=== PATIENT | female | born 2000 | race Caucasian/White ===

== ENCOUNTER → 2021-07-30 09:26 | Day surgery (SDC) | payer OTHER, SELFPAY ==
[2021-07-30 09:48] VITALS: BMI 22.1
[2021-07-30 09:59] VITALS: BP 106/69; PULSE 72; RESP 18; TEMP 36.5; O2SAT 100
--- NOTE | 2021-07-30 11:59 | P.PCN_ITS ---
Findings:: PROCEDURE: Upright Tilt Table Test REQUESTING PROVIDER: Era Casillas NP / Dr Deja Gomez INDICATION: Recurrent syncope dating back to childhood BETA BLOCKERS: None PRE-TEST VS: BP 113/65, HR 69 and NSR, O2sats 99% PROCEDURE SUMMARY: Patient was connected to heart monitor, BP and O2 sat monitors and safety straps applied. She was then tilted to 70 degrees for a 35 minutes. While upright she denied any symptoms and had no syncope or pre- syncope. Her BP remained within normal limits with the highest reading being 133/82, occurring 5 minutes after being tilted upright. Her BP then settled down close to her pretest reading. Her lowest BP while upright was 109/81 occurring approximately 32 minutes after being tilted upright. Her HR fluctuated while upright with the highest being 106 bpm and lowest 80 bpm. Immediately after she was returned to the supine position she complained of feeling lightheaded and had a corresponding BP of 92/58 with a HR of 66 bpm. 3 minutes later (while still supine) her BP was 108/67, HR 65 and symptoms had resolved. Her heart rhythm was normal sinus throughout and her O2sats remained in the high 90s. COMPLICATIONS: None CONCLUSIONS: Unremarkable Tilt Table Test
== END ==
PROVIDERS: PCP Family Medicine; Visit Provider Nurse Practitioner Family
DX: R41.0 Disorientation, unspecified (principal); R55 Syncope and collapse
CPT/HCPCS: 93660

== ENCOUNTER → 2021-08-06 07:48 | Outpatient (CLI) | payer OTHER, SELFPAY ==
--- NOTE | 2021-08-06 07:49 | CA_ITS ---
APPROVED REPORT EXAM: Comprehensive 2D, Doppler, and color-flow Echocardiogram Electrolog Operator: Sindi Maki CRT Ht: 5 ft 2 in Wt: 125lbs BSA: 1.57 BP: 96/58 mmHg Indications: Syncope, confusion 2D Dimensions LVOT 1.88 cm (M/F) 1.5-2.5 LA Volume 17.80 mL LA Volume Index 11.30 mL/m2 (M/F) 16-34 M-Mode Dimensions RVDd 1.57 cm (0.9-2.6) LA Diam 2.42 cm (1.9-4.0) LVDd 4.55 cm (3.5-5.7) Ao Diam 2.94 cm (2.0-3.7) LVDs 3.20 cm (3.5-5.7) IVSd 0.84 cm (0.6-1.1) PWd 0.49 cm (0.6-1.1) EF (Teich) 56.80% FS 29.70% EDV (Teich) 94.90 mL TAPSE 1.76 (<1.7) ESV (Teich) 41.00 mL LV Diastology E Decel Time 150.00 (160-240 msec) E/A Ratio 1.79 MED E' 16.90 (< 7 cm/sec) MED A' 7.30 cm/s E'/MED E' Ratio 4.56 (>14) LAT E' 15.20 (<10 cm/sec) LAT A' 5.90 cm/s E/LAT E' Ratio 5.07 (>14) Aortic Valve AO Peak GR. 4.40 mmHg Mitral Valve MV A Velocity 43.00 (40-130 cm/s) E/A Ratio 1.79 MV Decel. Time 150.00 (160-240 ms) Pulmonary Valve PV Peak Velocity 141.00 (50-150 cm/s) Tricuspid Valve TR P. Velocity 176.00 cm/s RAP Estimate 10.00 mmHg RVSP 22.40 mmHg Left Ventricle Left atrium is normal size, left ventricle is normal size, there is no concentric left ventricular hypertrophy, visually estimated ejection fraction 55% with no regional wall motion abnormality, diastolic parameters are within normal range. Right Ventricle Right atrium and right ventricle are normal size and contractility. Aortic Valve Aortic valve is grossly normal, there is no aortic stenosis or aortic insufficiency. Mitral Valve Mitral valve is normal, there is trace mitral regurgitation. Tricuspid Valve Tricuspid grossly normal, there is trace tricuspid regurgitation, tricuspid regurgitation jet velocity is inadequate for calculation of the right ventricular systolic pressure. Pulmonic Valve Pulmonic valve is poorly visualized. Great Vessels Aortic root is normal size. Inferior vena cava is normal size with normal inspiratory collapse. Pericardium No significant pericardial effusion noted. Conclusion 1. Normal left ventricular size, preserved left ventricular systolic function, visually estimated ejection fraction 55% with no regional wall motion abnormality, diastolic parameters are within normal range. 2. Trace mitral and tricuspid regurgitation. 3. No significant pericardial effusion noted. 4. Inferior vena cava is normal size with normal inspiratory collapse. Electronically signed by : Gautam Garibay MD 08/06/2021 20:14:12
[2021-08-06 08:45] LABS: Basophils % 0.5 % (0.1-2.0); Eosinophils # 0.1 K/mm3 (0.0-0.4); Eosinophils % 1.3 % (0.1-12.0); Hematocrit 36.7 % (37.0-47.0); Hemoglobin 12.8 g/dL (12.2-16.2); Lymphocytes # 2.7 K/mm3 (0.7-4.5); Lymphocytes % 35.2 % (10-50); Mean Corpuscular HGB Conc 34.8 g/dL (31.8-35.4); Mean Corpuscular Hemoglobin 30.3 pg (27.0-31.2); Mean Platelet Volume 8.8 fl (7.4-10.4); Monocytes # 0.4 K/mm3 (0.1-1.0); Monocytes % 5.3 % (1.7-9.3); Neutrophils # 4.5 K/mm3 (1.8-7.8); Neutrophils % 57.8 % (37.0-80.0); Platelet Count 335 K/mm3 (142-424); Red Blood Count 4.22 M/mm3 (4.20-5.40); Red Cell Distribution Width 12.6 % (11.5-17.5); White Blood Count 7.7 K/mm3 (4.8-10.8)
[2021-08-06 09:46] LABS: Free T4 (Free Thyroxine) 1.04 ng/dl (0.78-2.19)
--- NOTE | 2021-08-06 10:56 | ECG_ITS ---
APPROVED REPORT Exam: Resting ECG HR:64 bpm ECG Measurements Heart Rate 64 AXES MI 128 P 73 QRSd 92 QRS 56 QT 432 T 40 QTc 445 Conclusion Normal sinus rhythm Possible Lateral infarct, age undetermined Abnormal ECG Electronically signed by : Dale Fox MD 08/07/2021 20:25:45
[2021-08-06 10:58] LABS: Chloride 105 mmol/L (98-107); Potassium 3.9 mmoL/L (3.5-5.1); Sodium 138 mmol/L (136-145)
[2021-08-06 11:01] LABS: Alanine Aminotransferase 8 U/L (12-78); Albumin Level 4.4 g/dl (3.5-5.0); Albumin/Globulin Ratio 1.6 (1.1-1.8); Alkaline Phosphatase 53 U/L (38-126); Anion Gap 11.9 mEq/L (5-15); Aspartate Amino Transferase 21 U/L (14-36); Bilirubin,Total 0.3 mg/dl (0.2-1.3); Blood Urea Nitrogen 6 mg/dl (7-17); Carbon Dioxide 25 mmol/L (22.0-30.0); Estimated Glomerular Filt Rate 124 ml/min (>60); GFR (African American) 150 ML/MIN (>60); Globulin 2.7 g/dL (1.3-3.2); Total Protein,Serum 7.1 g/dl (6.3-8.2)
[2021-08-06 11:02] LABS: Calcium 9.5 mg/dl (8.4-10.2); Glucose 83 mg/dl (74-100)
[2021-08-06 11:33] LABS: Thyroid Stimulating Hormone 3.74 uIU/mL (0.465-4.68)
[2021-08-06 17:35] LABS: Vitamin B12 359 pg/mL (239-931)
[2021-08-06 17:40] LABS: Folate 7.94 ng/mL
== END ==
PROVIDERS: PCP Family Medicine; Visit Provider Nurse Practitioner Family
DX: R55 Syncope and collapse (principal); R41.0 Disorientation, unspecified
CPT/HCPCS: 36415; 80053; 82607; 82746; 84439; 84443; 85025; 93005; 93270; 93306; 95816; 95819